=== PATIENT | male | born 1960 | race Caucasian/White ===

== ENCOUNTER 2025-06-21 07:59 | Outpatient (OUT) | payer OTHER, SELFPAY ==
[2025-06-21 08:38] LABS: Anion Gap 13.4; Blood Urea Nitrogen 9.0 mg/dL (7.0-18.0); Calcium 8.9 mg/dL (8.5-10.1); Carbon Dioxide 28.5 mmol/L (21.0-32.0); Chloride 107 mmol/L (98-107); Cholesterol 281 mg/dL (<=200); Estimated GFR (African America >60 (>=60 mL/min/1.73m^2); Estimated GFR (Non-African Ame >60 (>=60 mL/min/1.73m^2); Glucose 101 mg/dL (74-106); HDL Cholesterol 51 mg/dL (40-60); Potassium 3.9 mmol/L (3.5-5.1); Sodium 145 mmol/L (136-145); Triglycerides 225 mg/dL (<=150); VLDL CHOLESTEROL 45.0 mg/dL
== END 2025-06-21 08:00 | disposition home or self-care (01) ==
LOC: LAB 08:03
PROVIDERS: PCP Family Medicine; Visit Provider Internal Medicine Cardiovascular Disease
DX: E78.2 Mixed hyperlipidemia (principal); I10 Essential (primary) hypertension
CPT/HCPCS: 36415; 80048; 80061

== ENCOUNTER 2025-07-06 12:29 | Outpatient (OUT) | payer OTHER, SELFPAY ==
--- OUTSIDE RECORDS SUMMARY | 2025-07-05 09:20 | XMS_ITS | Encounter Summary ---
Author Organization [facility] Address [address] [address] Care Team Providers Care Electrical Equipment Technician Name Role Phone Golden Boss MD Primary Care Provider [phone] Reason for Visit * ReasonCommentsFollow-upPatient is here today for a 4 week follow up with labs. Patient states he is doing good. Patient denies chest pain, sob/zapata, dizziness/lightheaded, palpitations/racing heart, leg swelling, fatigueValve DisorderNon-rheumatic aortic valve insufficiencyVentricular Septal Defect Encounter Details DateTypeDepartmentCare Team (Latest Contact Info)Pgstajciynt45/22/2025 9:20 AM EDTOffice Visit [facility] [place] [address] [place] [address] Julius Sams MD [address] [place] [address] VSD (ventricular septal defect) (Primary Dx); Asymptomatic LV dysfunction; Primary hypertension; Right bundle branch block (RBBB) Social History Tobacco UseTypesPacks/DayYears UsedDateSmoking Tobacco: NeverSmokeless Tobacco: NeverAlcohol UseStandard Drinks/WeekCommentsYes0 (1 standard drink = 0.6 oz pure alcohol)occasionalSex and Gender InformationValueDate RecordedSex Assigned at CwujiMzej87/24/2025 9:39 AM EDTLegal BrjRffi9205/08/2025 2:04 PM EDTGender AqxoxucdTsmy62/24/2025 9:39 AM EDTSexual OrientationHeterosexual or Straight 06/07/2025 9:39 AM EDTdocumented as of this encounter Last Filed Vital Signs Vital SignReadingTime TakenCommentsBlood Eolfoiut413/9910 9:08 AM EDT Acvua018107/05/2025 9:08 AM EDTTemperature--Respiratory Rate--Oxygen Tjzozuiinn48% 07/05/2025 9:08 AM EDTInhaled Oxygen Concentration--Yezqjb822 kg (249 lb) 07/05/2025 9:08 AM EIEYnlltn307.9 cm (6')07/05/2025 9:08 AM EDTBody Mass Index 33.7707/05/2025 9:08 AM EDTdocumented in this encounter Functional Status * BPAnswerDate of JeruppwbeoYkhtsy217/9910 9:08 AM Isabell Dhaliwal MA * PulseAnswerDate of CucalapbtsRxelqp6929/22/2025 9:08 AM Isabell Dhaliwal MA * Patient PositionAnswerDate of QymqpirlwjUydenmIeefvke80/22/2025 9:08 AM EDT Isabell Duran MA * BPAnswerDate of BofquccxpgCvyprz089/9910 9:08 AM Isabell Dhaliwal MA * PulseAnswerDate of AnwimopywhByesyb9968/22/2025 9:08 AM Isabell Dhaliwal MA * ZoV1LkzmzvWaev of FszldmxlecEkamgp7613/22/2025 9:08 AM Isabell Dhaliwal MA * BP LocationAnswerDate of AssessmentAuthorRight arm07/05/2025 9:08 AM EDT Isabell Duran MA * Patient PositionAnswerDate of YxeyhqrtroQtuwunKdmbcct18/22/2025 9:08 AM [employer] Isabell Duran MA documented as of this encounter Patient Instructions * Attachments The following attachments cannot be sent through Care Everywhere. * Heart-Healthy Eating Plan (Norwegian) * Coronary Angiogram Care After (Norwegian) documented in this encounter Progress Notes * Julius Sams MD - 07/05/2025 9:20 AM EDT Subjective Patient ID: Ricky Brown is a 65 y.o. male who presents for Follow-up (Patient is here today for a4 week follow up with labs. Patient states he is doing good. Patient denies chest pain, sob/zapata, dizziness/lightheaded, palpitations/racing heart, leg swelling, fatigue), Valve Disorder (Non-rheumatic aortic valve insufficiency/), and Ventricular Septal Defect. No long bike rides lately, just short ones. Taking lisinopril without issues. Tries not to eat too much salt in the diet. Hunts canned spaghetti sauce last night for dinner (550mg sodium per half cup serving) Lives alone Review of Systems Objective Visit Vitals BP (!) 154/99 (BP Location: Right arm, Patient Position: Sitting) Pulse 64 Physical Exam Constitutional: Appearance: Normal appearance. He is obese. HENT: Head: Normocephalic and atraumatic. Cardiovascular: Rate and Rhythm: Normal rate and regular rhythm. No extrasystoles are present. Chest Wall: PMI is not displaced. Pulses: Carotid pulses are 2+ on the right side and 2+ on the left side. Heart sounds: Murmur heard. Systolic murmur is present. No diastolic murmur is present. No friction rub. No gallop. Comments: Holosystolic murmur Pulmonary: Effort: Pulmonary effort is normal. Breath sounds: Normal breath sounds. Abdominal: Palpations: Abdomen is soft. Musculoskeletal: Right lower leg: No edema. Left lower leg: No edema. Skin: General: Skin is warm and dry. Neurological: Mental Status: He is alert and oriented to person, place, and time. Mental status is at baseline. Psychiatric: Mood and Affect: Mood normal. Behavior: Behavior normal. Thought Content: Thought content normal. Assessment/Plan Diagnosis Plan 1. VSD (ventricular septal defect) Case Request Carbide Tool Die Maker: Coronary angiography, Left heart cath, Right heart cath 2. Asymptomatic LV dysfunction Case Request Carbide Tool Die Maker: Coronary angiography, Left heart cath, Right heart cath 3. Primary hypertension lisinopriL-hydrochlorothiazide (Zestoretic) 20-12.5 mg tablet Case Request Carbide Tool Die Maker: Coronary angiography, Left heart cath, Right heart cath CBC and differential Basic metabolic panel 4. Right bundle branch block (RBBB) Orders Placed This Encounter Procedures CBC and differential Standing Status: Future Expected Date: 07/05/2025 Expiration Date: 07/05/2026 Release to Patient: Immediately Basic metabolic panel Standing Status: Future Expected Date: 07/05/2025 Expiration Date: 07/05/2026 Release to Patient: Immediately No results found for this or any previous visit (from the past 36 hours). Follow up in about 6 weeks (around 08/16/2025). documented in this encounter Plan of Treatment DateTypeDepartmentCare Team (Latest Contact Info)Qvrgwivffeq45/29/2025 8:00 AM EDTHospital Encounter [facility] [address] [place] [address] Julius Sams MD [address] [place] [address] VSD (ventricular septal defect); Asymptomatic LV dysfunction; Primary gknxranuqkqp50/29/2025 8:00 AM EDT - 07/12/2025 9:00 AM EDTSurgery [facility] [address] [place] [address] Julius Sams MD [address] [place] [address] Coronary angiographyNameTypePriorityAssociated DiagnosesOrder ScheduleCBC and differentialLabRoutine Primary hypertension Expected: 07/05/2025 (Approximate), Expires: 07/05/2026asic metabolic panelLab Routine Primary hypertension Expected: 07/05/2025 (Approximate), Expires: 07/05/2026documented as of this encounter Visit Diagnoses Diagnosis VSD (ventricular septal defect)- Primary Ventricular septal defect Asymptomatic LV dysfunction Primary hypertension Unspecified essential hypertension Right bundle branch block (RBBB) Primary hypertension- Primary Unspecified essential hypertension VSD (ventricular septal defect) Ventricular septal defect Asymptomatic LV dysfunction VSD (ventricular septal defect) Ventricular septal defect Asymptomatic LV dysfunction Primary hypertension Unspecified essential hypertension documented in this encounter Care Teams Team MemberRelationshipSpecialtyStart DateEnd Date Golden Boss MD [address] [place] [address] PCP - GeneralFamily Medicine06/07/25documented as of this encounter
--- OUTSIDE RECORDS SUMMARY | 2025-07-06 12:33 | XMS_ITS | Encounter Summary ---
Author Organization [facility] Address [address] [place] [address] Care Team Providers Care Cell Biologist Name Role Phone Golden Boss MD Primary Care Provider [phone] Encounter Details DateTypeDepartmentCare Team (Latest Contact Info)Ysumdacvwrj19/23/2025Travel Social History Tobacco UseTypesPacks/DayYears UsedDateSmoking Tobacco: NeverSmokeless Tobacco: NeverAlcohol UseStandard Drinks/WeekCommentsYes0 (1 standard drink = 0.6 oz pure alcohol)occasionalSex and Gender InformationValueDate RecordedSex Assigned at ViydvSrtd41/24/2025 9:39 AM EDTLegal WmgIywn9805/08/2025 2:04 PM EDTGender OdcioffjYjqi83/24/2025 9:39 AM EDTSexual OrientationHeterosexual or Straight 06/07/2025 9:39 AM EDTdocumented as of this encounter Plan of Treatment DateTypeDepartmentCare Team (Latest Contact Info)Vchhgjsiuav69/29/2025 8:00 AM EDTHospital Encounter [facility] [place] [facility] [address] [place] [address] Julius Sams MD [address] [facility] [place] [address] VSD (ventricular septal defect); Asymptomatic LV dysfunction; Primary bxngishekqme07/29/2025 8:00 AM EDT - 07/12/2025 9:00 AM EDTSurgery [facility] [address] [place] [address] Julius Sams MD [address] [place] [address] Coronary angiographydocumented as of this encounter Visit Diagnoses Not on filedocumented in this encounter Care Teams Team MemberRelationshipSpecialtyStart DateEnd Date Golden Boss MD [address] [place] [address] PCP - GeneralFamily Medicine06/07/25documented as of this encounter
--- OUTSIDE RECORDS SUMMARY | 2025-07-06 12:33 | XMS_ITS | Encounter Summary ---
Author Organization [facility] Address [address] [place] [address] Care Team Providers Care Insurance Service Representative Name Role Phone Golden Boss MD Primary Care Provider [phone] Encounter Details DateTypeDepartmentCare Team (Latest Contact Info)Dphvngbmnwi18/22/2025Orders Only [facility] [place] [address] [place] [address] Clara Patten MA Pre-op evaluation (Primary Dx) Social History Tobacco UseTypesPacks/DayYears UsedDateSmoking Tobacco: NeverSmokeless Tobacco: NeverAlcohol UseStandard Drinks/WeekCommentsYes0 (1 standard drink = 0.6 oz pure alcohol)occasionalSex and Gender InformationValueDate RecordedSex Assigned at IxsbcSgsx38/24/2025 9:39 AM EDTLegal QjlPomg3805/08/2025 2:04 PM EDTGender ZrluwhlkEivj55/24/2025 9:39 AM EDTSexual OrientationHeterosexual or Straight 06/07/2025 9:39 AM EDTdocumented as of this encounter Functional Status * BPAnswerDate of MkwkdiaqmaSuczcp302/9907/05/2025 9:08 AM Isabell Dhaliwal MA * PulseAnswerDate of WcuqwndlisXqstec0023/22/2025 9:08 AM Isabell Dhaliwal MA * Patient PositionAnswerDate of BcvwxaixoqJdlcmgSrqfnav15/22/2025 9:08 AM Isabell Marin MA * BPAnswerDate of WudqokkqazPkjcqf870/9907/05/2025 9:08 AM Isabell Dhaliwal MA * PulseAnswerDate of YqmkasafmwFswplf0642/22/2025 9:08 AM EDIsabell De Leon MA * IcV2AsnwxjPnmz of SdmlnkbjhyZppnqu3492/22/2025 9:08 AM Isabell Dhaliwal MA * BP LocationAnswerDate of AssessmentAuthorRight arm07/05/2025 9:08 AM EDT Isabell Duran MA * Patient PositionAnswerDate of PedwykopeqVzejkaCtuzewo93/22/2025 9:08 AM EDT Isabell Duran MA documented as of this encounter Plan of Treatment DateTypeDepartmentCare Team (Latest Contact Info)Iowbenlncwt12/29/2025 8:00 AM EDTHospital Encounter [facility] Lab [address] [place] [address] Julius Sams MD [address] [place] [address] VSD (ventricular septal defect); Asymptomatic LV dysfunction; Primary ompfrudmxewc48/29/2025 8:00 AM EDT - 07/12/2025 9:00 AM EDTSurgery [facility] [address] [place] [address] Juilus Sams MD [address] [place] [address] Coronary angiographyNameTypePriorityAssociated DiagnosesOrder ScheduleCBC and differentialLabRoutine Pre-op evaluation Expected: 07/05/2025 (Approximate), Expires: 07/05/2026asic metabolic panelLab Routine Pre-op evaluation Expected: 07/05/2025 (Approximate), Expires: 07/05/2026documented as of this encounter Visit Diagnoses Diagnosis Pre-op evaluation- Primary Primary hypertension- Primary Unspecified essential hypertension VSD (ventricular septal defect) Ventricular septal defect Asymptomatic LV dysfunction VSD (ventricular septal defect) Ventricular septal defect Asymptomatic LV dysfunction Primary hypertension Unspecified essential hypertension documented in this encounter Care Teams Team MemberRelationshipSpecialtyStart DateEnd Date Naderer, Golden, MD [address] [place] [address] PCP - GeneralFamily Medicine06/07/25documented as of this encounter
--- OUTSIDE RECORDS SUMMARY | 2025-07-06 12:34 | XMS_ITS | Clinical Summary ---
Author Organization [facility] tem Address [id number] [place] [address] Care Team Providers Care Abstract Maker Name Role Phone Claudia Cameron MARKETING TRAINEE-DIETARY DIRECTOR Primary Care Pr ovider Allergies No known active allergies Medications No known medications Active Problems No known active problems Family History Medical HistoryRelationNameCommentsCancerFatherLuke BrownLung cancer FatherWiruth BrownBrain cancerMotherCancerMotherCancerPaternal Grandfather Luke BrownColon cancerPaternal GrandfatherLuke BrownLiver cancerPaternal GrandfatherLuke BrownRelationNameStatusCommentsFather Luke BrownDeceasedMotherDeceasedPaternal GrandfatherWiruth Brown Social History Tobacco UseTypesPacks/DayYears UsedDateSmoking Tobacco: NeverSmokeless Tobacco: Never Tobacco Cessation:Counseling Given: Not Answered Alcohol UseStandard Drinks/WeekCommentsYes0 (1 standard drink = 0.6 oz pure alcohol)SOCIALLYChildcareAnswerDate JlxrstumXxckgwxmfDmvndke86/12/2019Employment AnswerDate TlzxgyzhZrpsutrtakLfvnzvo41/12/2019Hunger ScreeningAnswerDate RecordedWithin the past 12 months we worried whether our food would run out before we got money to buy more.Never True09/06/2024Within the past 12 months the food we bought just didn't last and we didn't have money to get more.Never True09/06/2024urpose - LifeAnswerDate RecordedPurpose and direction in life Tzeeigf7810/25/2020ex and Gender InformationValueDate RecordedSex Assigned at BirthNot on fileLegal NvhSrkp8504/19/2015 12:12 PM EDTGender IdentityNot on file Sexual OrientationNot on file Last Filed Vital Signs Vital SignReadingTime TakenCommentsBlood Abfraiav596/7712/ 9:24 AM EST Aqhfq946109/06/2024 9:24 AM BNRZgfbvcudepk57.1 ??C (97 ??F)08/23/2024 11:15 AM EST Respiratory Rkfq315208/23/2024 11:59 AM ESTOxygen Hdbmobitki99%08/23/2024 11:59 AM ESTInhaled Oxygen Concentration--Sylyxm097.5 kg (241 lb 6.4 oz)10/04/2024 9:15 AM QGLHcqhpl573.4 cm (6' 1 )10/04/2024 9:15 AM ESTBody Mass Index31.85010/04/2024 9:15 AM EST Plan of Treatment Health MaintenanceDue DateLast DoneCommentsDepression Wgontngct63/11/1970Adult BMI Follow Up Plan02/23/1976DTaP,Tdap and Td Vaccines (1 - Tdap)1977 Bluprdtpicy59Fall Risk Oegrhhmvl72/11/2023COVID-19 Vaccine ( season)/, 12/11/2020, 11/20/2020Influenza Vaccine /, 07/06/2023, 06/09/2022, Additional history existsAdult BMI Fkfirdubz26/Tobacco Mtwfqrrxl98/Zoster (Shingles) XgbszpkAsvzpnxxm58/29/2022, 05/12/2022 Medical Devices ImplantedTypeAreaManufacturerDevice IdentifierShelf Expiration DateModel / Serial / LotMesh 3in Lg Pp Srgpro Nabsb Knit Plg Srg Strl Clr Hrn Rpl [id number] - Sna - [id number] Implanted:Qty: 2 on 08/23/2024 by [facility]ide [facility]eshRight: AbdomenMEDTRONIC [facility]06/13/2028SMPL- / NA / [id number] Procedures Procedure NamePriorityDate/TimeAssociated DiagnosisCommentsHM COLONOSCOPYRoutine 04/25/2013 from Last 3 Months or Most Recently Relevant to Health Maintenance Results * COLONOSCOPY (04/25/2013)ComponentValueRef RangeTest MethodAnalysis Time Performed AtPathologist Signature ColonoscopyCOLONOSCOPYEHS EXTERNAL NON- INTERFACED REF LABSpecimen (Source)Anatomical Location / LateralityCollection Method / VolumeCollection TimeReceived Time04/25/2013 Narrative Authorizing ProviderResult TypeResult StatusScanning Provider ExternalHEALTH MAINTENANCEEdited Result - FinalPerforming OrganizationAddressCity/State/ZIP CodePhone Number [facility] EXTERNAL NON-INTERFACED REF LAB [address] [facility] [place] [address] from Last 3 Months or Most Recently Relevant to Health Maintenance Insurance Care Teams Team MemberRelationshipSpecialtyStart DateEnd Date Claudia Cameron APRN-DIETARY DIRECTOR [address] [place] [address] PCP - GeneralNurse Vrfllghnnrai47/1/24
--- OUTSIDE RECORDS SUMMARY | 2025-07-06 12:34 | XMS_ITS | Clinical Summary ---
Author Organization [facility] Address [address] [place] [address], [address] [place] [address] Care Team Providers Care Licensed And Certified Midwife Name Role Phone Unavailable Primary Care Provider Unavailabl e Social History Tobacco UseTypesPacks/DayYears UsedDateSmoking Tobacco: Never AssessedSex and Gender InformationValueDate RecordedSex Assigned at BirthNot on fileLegal Sex Male10/26/2012 8:09 PM ESTGender IdentityNot on fileSexual OrientationNot on file Plan of Treatment Not on file
--- OUTSIDE RECORDS SUMMARY | 2025-07-06 12:34 | XMS_ITS | Clinical Summary ---
Author Organization [facility] Address [address] [place] [address] Care Team Providers Care Media Relations Associate Name Role Phone Golden Boss MD Primary Care Provider Allergies No known active allergies Medications MedicationSigDispense QuantityRefillsLast FilledStart DateEnd DateStatus omega-3 1,000 mg capsule capsule Take 2 g by mouth twice a day.ctive lisinopriL-hydrochlorothiazide (Zestoretic) 20-12.5 mg tablet Indications:Primary hypertensionTake 1 tablet by mouth in the morning. 30 tablet 111/822361/ctive lisinopril 10 mg tablet Indications:Asymptomatic LV dysfunction,Primary hypertensionTake 1 tablet (10 mg) by mouth in the morning. 30 tablet 110Discontinued(Therapy completed) Active Problems ProblemNoted DateDiagnosed DatePrimary mzffapsvclec83/22/2025symptomatic LV wqubzneczcn66/24/2025Nonrheumatic aortic valve danayvyrabdyx55/23/2025bnormal wnuscdwlrzrhkz67/19/2025Medicare annual wellness visit, hvkwnrvxyt51/19/2025VSD (ventricular septal defect)05/02/2025lass 1 obesity due to excess calories with serious comorbidity and body mass index (BMI) of 34.0 to 34.9 in adult01/26/2025 Encounter for long-term (current) use of ovqkefgpdru68/15/2025Prediabetes 01/26/2025Screening PSA (prostate specific antigen)01/26/2025Dyslipidemia 07/14/2024 Resolved Problems ProblemNoted DateDiagnosed DateResolved DateChronic HFrEF (heart failure with reduced ejection fraction)/ Encounters DateTypeDepartmentCare MkffVebewctfijz01/23/6649Iueynk08/22/2025 9:20 AM EDT Office Visit [facility] [address] [place] [address] Julius Sams MD VSD (ventricular septal defect) (Primary Dx); Asymptomatic LV dysfunction; Primary hypertension; Right bundle branch block (RBBB)07/05/2025Orders Only [facility] [address] [place] [address] Clara Patten MA Pre-op evaluation (Primary Dx)06/07/2025 10:00 AM EDTOffice Visit [facility] [address] [place] [address] Julius Sams MD VSD (ventricular septal defect) (Primary Dx); Abnormal echocardiogram; Asymptomatic LV dysfunction; Right bundle branch block (RBBB); Primary hypertension; Mixed zqjfgqixefqycf55/24/2025Orders Only [facility] [address] [place] [address] Provider, MD Wyatt from Last 3 Months Family History Medical HistoryRelationNameCommentsHyperlipidemiaBrother 1CancerFatherCancer MotherRelationNameStatusCommentsBrother 1AliveBrother 2AliveBrother 3AliveFather DeceasedMotherDeceased Social History Tobacco UseTypesPacks/DayYears UsedDateSmoking Tobacco: NeverSmokeless Tobacco: Never Tobacco Cessation:Counseling Given: Not Answered Alcohol UseStandard Drinks/WeekCommentsYes0 (1 standard drink = 0.6 oz pure alcohol)occasionalSex and Gender InformationValueDate RecordedSex Assigned at EilhqQdsn83/24/2025 9:39 AM EDTLegal VulIgzp0905/08/2025 2:04 PM EDTGender PvmicvxaHoff21/24/2025 9:39 AM EDTSexual OrientationHeterosexual or Straight 06/07/2025 9:39 AM EDT Last Filed Vital Signs Vital SignReadingTime TakenCommentsBlood Fjjzxslz580/9910/ 9:08 AM EDT Apugy311007/05/2025 9:08 AM EDTTemperature--Respiratory Rate--Oxygen Nbjkqhxaev80% 07/05/2025 9:08 AM EDTInhaled Oxygen Concentration--Lfiuah088 kg (249 lb) 07/05/2025 9:08 AM RCAKdlxpt693.9 cm (6')07/05/2025 9:08 AM EDTBody Mass Index 33.7707/05/2025 9:08 AM EDT Plan of Treatment DateTypeDepartmentCare Team (Latest Contact Info)Tiynfinrbgk75/29/2025 8:00 AM EDTHospital Encounter [facility] [place] [facility] [address] [place] [address] Julius Sams MD [address] [place] [address] VSD (ventricular septal defect); Asymptomatic LV dysfunction; Primary hngbmkdiicef87/29/2025 8:00 AM EDT - 07/12/2025 9:00 AM EDTSurgery [facility] [place] [facility] [address] [place] [address] Julius Sams MD [address] [place] [address] Coronary angiographyHealth MaintenanceDue DateLast DoneCommentsCT Colonography 1960 9018Uefxcbmpjzl13/11/5458OYWG1958Medicare Annual Wellness (AWV) 1960 5465Guymgyndgbvzb1958Depression Lofafhicf26/11/1970Adult Tetanus 02/23/1980Fall Risk Hokvuowpm28/11/2023OVID-19 Vaccine ( season) 512/, 12/11/2020, 11/20/2020Influenza Vaccine (#1)2025 07/14/2024, 07/14/2024, 07/06/2023, Additional history plxywaRUT37/07/2026 10/21/2024Diabetes: Hemoglobin A1C05//841931/5Colorectal Cancer Sownczxml15/07/2028FIT-DNAZoster VaccinesCompleted 07/12/2022, 05/12/2022neumococcal Vaccine: 50+ ZuaarDuvyaznoy78/23/2023HIB VaccinesAged OutNo longer eligible based on patient's age to complete this topic HPV VaccinesAged OutNo longer eligible based on patient's age to complete this topicIPV VaccinesAged OutNo longer eligible based on patient's age to complete this topicMeningococcal B VaccineAged OutNo longer eligible based on patient's age to complete this topicMeningococcal VaccineAged OutNo longer eligible based on patient's age to complete this topicRotavirus VaccinesAged OutNo longer eligible based on patient's age to complete this topic Procedures Procedure NamePriorityDate/TimeAssociated DiagnosisCommentsECG 12 LEAD UNIT QNPBXRQGMUrgsfyn16/24/2025 9:44 AM EDT Abnormal echocardiogram from Last 3 Months Results * ECG 12 lead unit performed (06/07/2025 9:44 AM EDT)Specimen (Source)Anatomical Location / LateralityCollection Method / VolumeCollection TimeReceived Time Narrative Authorizing ProviderResult TypeResult StatusChristopher Latrell RODRIGUEZG ORDERABLES Final Result from Last 3 Months Insurance Care Teams Team MemberRelationshipSpecialtyStart DateEnd Date Golden Boss MD [address] [place] [address] [facility]CP - [facility]06/07/25
--- OUTSIDE RECORDS SUMMARY | 2025-07-06 12:34 | XMS_ITS | Clinical Summary ---
Author Organization [facility] Address [address] [place] [address] Care Team Providers Care Editorial Director Name Role Phone Golden Boss MD Unavailable Golden Boss MD Primary Care Provider Allergies No known active allergies Medications MedicationSigDispense QuantityRefillsLast FilledStart DateEnd DateStatus fish oil concentrate (Harlan-3) 1000 MG capsule Indications:HypertriglyceridemiaTake 2 capsules (2 g) by mouth in the morning and 2 capsules (2 g) before bedtime. 120 capsule 502/6Active Active Problems ProblemNoted DateDiagnosed DateChronic HFrEF (heart failure with reduced ejection fraction)05/02/2025 Assessment & Plan (05/02/2025 10:08 AM EDT): Refer to cardiology. Abnormal dcrmfgbkjzixdj78/19/2025Medicare annual wellness visit, subsequent 05/02/2025 Assessment & Plan (05/02/2025 10:08 AM EDT): Reviewed labs. Cologuard normal 10/2024. Discussed proper diet and regular aerobic exercise. Need aerobic exercise 5-6 days a week for 30 minutes at a time. Smaller portions and limit total calories. Tetanus every 10 years. Advised not to smoke. VSD (ventricular septal defect)05/02/2025 Assessment & Plan (05/02/2025 10:09 AM EDT): Reports known defect but no evaluation for years. Refer to cardiology. Class 1 obesity due to excess calories with serious comorbidity and body mass index (BMI) of 34.0 to 34.9 in adult01/26/2025 Assessment & Plan (01/26/2025 1:47 PM EDT): Weight loss indicated. Crglktdmtzq72/15/2025 Assessment & Plan (01/26/2025 1:47 PM EDT): Repeat labs. Encounter for long-term (current) use of jumoprbdvbp01/15/2025Screening PSA (prostate specific antigen)01/26/2025Elevated blood pressure reading in office without diagnosis of izacryhodhyz27/31/2024 Assessment & Plan (01/26/2025 1:46 PM EDT): BP elevated and monitor PRN. Ptwstcultarj87/31/2024 Assessment & Plan (05/02/2025 10:09 AM EDT): Discussed statin and declined. Assessment & Plan (01/26/2025 1:47 PM EDT): Repeat labs. Assessment & Plan (10/17/2024 9:10 AM EST): Currently taking fish oil 2g BID. Continue current regimen. Will recheck Lipid Panel 12/2024. Nonrheumatic aortic valve insufficiency Assessment & Plan (01/26/2025 1:47 PM EDT): History of aortic regurg and loud murmur on exam. Not symptomatic and not lightheaded and no SOB with exertion. Check echo. Resolved Problems ProblemNoted DateDiagnosed DateResolved DateScreening for malignant neoplasm of colonScreening for colon fuzlqu10Inguinal hernia of right side without obstruction or ridkvaym31/ Assessment & Plan (07/15/2024 8:30 AM EDT): Has hx of surgical hernia repair 10-12 years ago. R inguinal outpouching observed. Is reducible. Normal skin tone. Denies pain or discomfort associated. Educated on concerning/emergent symptoms to monitor for and to report to ER if occurs. PT verbalized understanding. Referral sent to Gen Surg. Encounters DateTypeDepartmentCare OjceSxlvrcxxrlz67/19/2025 9:30 AM EDTOffice Visit [facility] [address] [place] [phone] Golden Boss MD Medicare annual wellness visit, subsequent (Primary Dx); Chronic HFrEF (heart failure with reduced ejection fraction) (HCC); VSD (ventricular septal defect) (HCC); Abnormal echocardiogram; Jkwxybfigimr29/19/2025amboo flowsheet [facility] [address] [place] [id number] Golden Boss MD from Last 3 Months Immunizations ImmunizationAdministration DatesNext DueInfluenza, seasonal, injectable, preservative free07/14/2024 Family History Medical HistoryRelationNameCommentsCancerFatherAlzheimer's diseaseFather's BrotherAlzheimer's diseaseFather's SisterCancerMotherCancerPaternal Grandfather RelationNameStatusCommentsFatherDeceasedFather's BrotherFather's SisterMother DeceasedPaternal Grandfather Social History Tobacco UseTypesPacks/DayYears UsedDateSmoking Tobacco: NeverSmokeless Tobacco: Never Tobacco Cessation:Counseling Given: Not Answered Alcohol UseStandard Drinks/WeekCommentsYes1 (1 standard drink = 0.6 oz pure alcohol)B1300 Health LiteracyAnswerDate RecordedHow often do you need to have someone help you when you read instructions, pamphlets, or other written material from your doctor or pharmacy?Patient declines to bbohnxm2410/10/2024 Social Connection and Isolation PanelAnswerDate RecordedIn a typical week, how many times do you talk on the phone with family, friends, or neighbors?Once a week10/10/2024How often do you get together with friends or relatives?Once a week10/10/2024How often do you attend taoism or restoration services?More than 4 times per year10/10/2024Do you belong to any clubs or organizations such as taoism groups, unions, fraternal or athletic groups, or school groups?Yes 10/10/2024How often do you attend meetings of the clubs or organizations you belong to?More than 4 times per year10/10/2024re you , , , , never , or living with a partner?Never 10/10/2024UDIT-CAnswerDate RecordedQ1: How often do you have a drink containing alcohol?Patient uosjdcud31/27/2025Q2: How many drinks containing alcohol do you have on a typical day when you are drinking?Patient ogzokvlv96/27/2025Q3: How often do you have six or more drinks on one occasion?Patient xunxznpz14/27/2025 Overall Financial Resource Strain (CARDIA)AnswerDate RecordedHow hard is it for you to pay for the very basics like food, housing, medical care, and heating?Not hard at all10/10/2024PHQ-2AnswerDate RecordedPatient Health Questionnaire-2 Tgisk264Finj[facility] [place] [facility] - Occupational Stress QuestionnaireAnswerDate RecordedDo you feel stress - tense, restless, nervous, or anxious, or unable to sleep at night because yourmind is troubled all the time - these days?Not at all10/10/2024Exercise Vital SignAnswerDate RecordedOn average, how many days per week do you engage in moderate to strenuous exercise (like a brisk walk)?3 days10/10/2024On average, how many minutes do you engage in exercise at this level?20 min10/10/2024Hunger Vital SignAnswerDate Recorded Within the past 12 months, you worried that your food would run out before you got the money to buymore.Never true10/10/2024Within the past 12 months, the food you bought just didn't last and you didn't have money to get more.Never true 10/10/2024PRAPARE - TransportationAnswerDate RecordedIn the past 12 months, has lack of transportation kept you from medical appointments or from getting medications?No10/10/2024In the past 12 months, has lack of transportation kept you from meetings, work, or from getting things needed for daily living?No 10/10/2024Housing Stability Vital SignAnswerDate RecordedIn the last 12 months, was there a time when you were not able to pay the mortgage or rent on time?No 10/10/2024Number of Times Moved in the Last YearNot on file10/10/2024t any time in the past 12 months, were you homeless or living in a assisted (including now)? No10/10/2024Sex and Gender InformationValueDate RecordedSex Assigned at BirthNot on fileLegal VpcIsip2711/26/2022 7:01 PM EDTGender IdentityNot on fileSexual OrientationNot on file Last Filed Vital Signs Vital SignReadingTime TakenCommentsBlood Arlfqxub766/76005/02/2025 9:27 AM EDT Orwgk9141/19/2025 9:27 AM LZYUvpfftjqcim97.4 ??C (97.5 ??F)05/02/2025 9:27 AM EDTRespiratory Zmna697805/02/2025 9:27 AM EDTOxygen Daobkiymuh72%05/02/2025 9:27 AM EDTInhaled Oxygen Concentration--Czkewi192 kg (252 lb)05/02/2025 9:27 AM EDT Pgmqtf350.9 cm (6')05/02/2025 9:27 AM EDTBody Mass Index34.18005/02/2025 9:27 AM EDT Plan of Treatment Health MaintenanceDue DateLast DoneCommentsCT Brmmtkjesche1958Colonoscopy 1958FIT1958FOBT1958 0468Niguhblgvazdx1958Influenza Vaccine (#1), 07/06/2023, 06/09/2022, Additional history exists Medicare Annual Wellness (AWV)olorectal Cancer Screening 10/21/2027FIT-DNAPneumococcal Vaccine: 65+ YearsCompleted 07/06/2023 Procedures Procedure NamePriorityDate/TimeAssociated DiagnosisCommentsLAB COLOGUARD?? COLON CANCER CPCGFGVxttzhz94/07/2025 9:40 AM EST Screening for malignant neoplasm of colon from Last 3 Months or Most Recently Relevant to Health Maintenance Results * Cologuard?? colon cancer screening (10/21/2024 9:40 AM EST)ComponentValueRef RangeTest MethodAnalysis TimePerformed AtPathologist SignatureNONINV COLON CA DNA+OCC BLD SCRN STL-WIHWtqrprbiMveqetyp86/12/2025 5:53 PM [employer] (CLIA #:[id number])Comment: NEGATIVE TEST RESULT. A negative Cologuard result indicates a low likelihood that a colorectal cancer (CRC) or advanced adenoma (adenomatous polyps with more advanced pre-malignant features) ??is present. The chance that a person with a negative Cologuard test has a colorectal cancer is less than 1in 1500 (negative predictive value >99.9%) or has an advanced adenoma is less than 5.3% (negative predictive value 94.7%). These data are based on a prospective cross-sectional study of 10,000individuals at average risk for colorectal cancer who were screened with both Cologuard and colonoscopy. (Sidra Gonzalez. et al, N Engl J Med 2014;370(14):1780-7073) The normal value (reference range) for this assay is negative. COLOGUARD RE-SCREENING RECOMMENDATION: Periodic colorectal cancer screening is an important part ofpreventive healthcare for asymptomatic individuals at average risk for colorectal cancer. ??Following a negative Cologuard result, the [place] [employer] and U.S. Multi-Society Task Force screening guidelines recommend a Cologuard re-screening interval of 3 years. References: [place] [employer] Guideline for Colorectal Cancer Screening: https://www.cancer.or g/cancer/yovbd-uqlrzh-sakvav/odguxdghe-fbagisers-gjdecxv/acs-recommendations.htm javier DAMON, Isabella WATKINS, Markel CONROY, Colorectal Cancer Screening: Recommendations for Physicians and Patients from the U.S. Multi-Society Task Force on Colorectal Cancer Screening , Am J Gastroenterology 2017; 112:6253-7371. TEST DESCRIPTION: Composite algorithmic analysis of stool DNA-biomarkers with hemoglobin immunoassay. ?? Quantitative values of individual biomarkers are not reportable and are not associated with individual biomarker result reference ranges. Cologuard is intended for colorectal cancer screening ofadults of either sex, 45 years or older, who are at average-risk for colorectal cancer (CRC). Cologuard has been approved for use by the U.S. FDA. The performance of Cologuard was established in a cross sectional study of average-risk adults aged 50-84. Cologuard performance in patients ages 45 to 49 years was estimated by sub-group analysis of near-age groups. Colonoscopies performed for a positive result may find as the most clinically significant lesion: colorectal cancer [4.0%], advanced adenoma (including sessile serrated polyps greater than or equal to 1cm diameter) [20%] or non- advanced adenoma [31%]; or no colorectal neoplasia [45%]. These estimates are derived from a prospective cross-sectional screening study of 10,000 individuals at average risk for colorectal cancer who were screened with both Cologuard and colonoscopy. (Sidra Gonzalez. et al, N Engl J Med 2014;370(14):9730-7380.) Cologuard may produce a false negative or false positive result (no colorectal cancer or precancerous polyp present at colonoscopy follow up). A negative Cologuard test result does not guarantee the absence of CRC or advanced adenoma (pre-cancer). The current Cologuard screening interval is every 3 years. ([place] [employer] and U.S. Multi-Society Task Force). Cologuard performance data in a 10,000 patient pivotal study using colonoscopy as the reference method can be accessed at the following location: www.[employer] [facility].Hi-G-Tek/results. Additional description of the Cologuard test process, warnings and precautions can be found at www.cologuard.com. Specimen (Source)Anatomical Location / LateralityCollection Method / Volume Collection TimeReceived TimeStool specimen (specimen)10/21/2024 9:40 AM EST 10/22/2024 7:30 AM EST Narrative Authorizing ProviderResult TypeResult StatusBrittany Cameron [facility] ORDERABLESFinal ResultPerforming OrganizationAddressCity/State/ZIP CodePhone Number .[employer] (CLIA #:[id number]) [address] [place] [id number], [employer] [facility] (CLIA #:[id number]) [address] [place] [id number] from Last 3 Months or Most Recently Relevant to Health Maintenance Insurance Care Teams Team MemberRelationshipSpecialtyStart DateEnd Date Golden Boss MD [address] [place] [phone] PCP - Devoted09/14/23 Golden Boss MD [address] [place] [phone] PCP - General05/01/25
[2025-07-06 12:56] LABS: Hematocrit 52.0 % (42.0-54.0); Hemoglobin 18.4 g/dL (14.0-18.0); Immature Granulocytes Abs Auto 0.01 10^3/uL (0.00-0.03); Immature Granulocytes Pct Auto 0.2 % (0.0-0.5); Lymphocytes Absolute Auto 1.6 10^3/uL (1.2-3.8); Mean Corpuscular HGB Conc 35.4 g/dL (29.9-35.2); Mean Corpuscular Hemoglobin 29.8 pg (25.9-34.0); Mean Corpuscular Volume 84.3 fL (80.0-94.0); Platelet Count 166 10^3/uL (150-450); Red Blood Count 6.17 10^6/uL (4.70-6.10); White Blood Count 6.0 10^3/uL (4.0-11.0)
[2025-07-06 13:13] LABS: Anion Gap 10.1; Blood Urea Nitrogen 7.0 mg/dL (7.0-18.0); Calcium 9.5 mg/dL (8.5-10.1); Carbon Dioxide 31.2 mmol/L (21.0-32.0); Chloride 105 mmol/L (98-107); Estimated GFR (African America >60 (>=60 mL/min/1.73m^2); Estimated GFR (Non-African Ame >60 (>=60 mL/min/1.73m^2); Glucose 117 mg/dL (74-106); Potassium 4.3 mmol/L (3.5-5.1); Sodium 142 mmol/L (136-145)
== END 2025-07-06 12:30 | disposition home or self-care (01) ==
LOC: LAB 12:30
PROVIDERS: PCP Family Medicine; Visit Provider Internal Medicine Cardiovascular Disease
DX: I10 Essential (primary) hypertension (principal)
CPT/HCPCS: 36415; 80048; 85025